=== PATIENT | female | born 2000 | race African-American/Black ===

== ENCOUNTER 2021-08-11 19:33 | Emergency (ER) | payer BC, SELFPAY ==
[2021-08-11 20:15] VITALS: BP 131/68; PULSE 67; RESP 20; TEMP 36.8; O2SAT 0; BMI 35.4
[2021-08-11] MEDS: Ondansetron ODT 4 MG TAB.RAPDIS SUBLINGUAL (20:22)
--- NOTE | 2021-08-11 21:14 | ED_ITS ---
HPI - Abdominal Pain General Chief Complaint: Abdominal Pain Stated Complaint: Abdominal pain Time Seen by Provider: 08/11/21 21:01 Source: patient Mode of arrival: ambulatory Limitations: no limitations History of Present Illness HPI narrative: 21-year-old female who presents emergency department for evaluation of abdominal pain, nausea and vomiting. The patient states that her menstrual period started on and came 2 days orally. She states that she has had normal month for flow is use the normal number of tampons and pads. She states however she has severe cramping which is unusual for her. She points to her suprapubic area when asked to localize the area of pain. She states the cramping is intermittent and worse at night. She states the pain is 10/10 at its worst. The patient has had nausea and vomiting. She states she vomited at least 4 times today and there was no blood in the emesis. The pain does not radiate to her back. The patient states that she has an IUD and is sexually ac tive and she states she had sex 3 days prior. She denied fever, chills, chest pain, shortness of breath, frequency, urgency or dysuria. She has had no diarrhea and she feels constipated. Related Data Previous Rx's Medication Instructions Recorded ondansetron 4 mg disintegrating 4 mg PO Q6-8H PRN #14 tab 08/11/21 tablet Allergies Allergy/AdvReac Type Severity Reaction Status Date / Time No Known Allergies Allergy Verified 08/11/21 20:14 Review of Systems Review of Systems Yes all other systems are reviewed and are negative Physical Exam Vital Signs: Vital Signs: Last Vital Signs Temp 98.2 F 08/11/21 20:15 Pulse 67 08/11/21 20:15 Resp 20 08/11/21 20:15 BP 131/68 08/11/21 20:15 Pulse Ox 0 L 08/11/21 20:15 Body Mass Index 35.4 Const: Other: Very pleasant and cooperative female patient, she answers all questions appropriately, she does not appear to be in distress at this time. HENMT: Head: Yes normal to inspection, Yes normocephalic and Yes atraumatic Ears: external ears normal General nose exam: Normal external nose present Face and sinus: Yes normal facial exam Mouth: Normal oral and palatal mucosa present Throat: Yes posterior oropharynx normal Eyes: General: appearance normal, both eyes and all related structures Pupils: Equal, round and reactive pupils present Neck: Neck: Yes normal visual inspection, Yes no lymphadenopathy, Yes trachea midline and Yes supple Chest: Chest palpation & inspection: normal inspection of the chest and normal palpation of entire chest wall Resp: Effort & Inspection: normal respiratory effort and able to speak in complete sentences Auscultation: clear to auscultation bilaterally Cardio: Rate: regular rate Rhythm: regular rhythm Heart sounds: S1 normal heart sound present, S2 normal heart sound present and no murmurs GI: Inspection: Yes normal to inspection Palpation (GI): Soft to palpation, Tenderness to palpation present (GI) suprapubicly (Moderate) and no guarding Auscultation: normal bowel sounds : General: Yes no CVA tenderness Back/Spine/Pelvis: Back: no CVA tenderness Skin: General skin exam: no rashes or lesions noted Neuro: Cranial nerves: Yes CN's II-XII intact bilaterally and Yes Equal, round and reactive pupils present Cognition (Neuro): normal cognition Motor exam (neuro): 5/5 motor strength present throughout Extrem: General: Yes normal to inspection Psych: Appearance: grossly normal Speech and movement: Normal speech and movement present Affect: normal affect Attitude: cooperative Thought process: Normal thought process present Thought content: Normal thought content present Course Course Course Narrative: 21-year-old female who presents emergency department for evaluation menstrual bleeding and cramps which started on , 4 days prior to evaluation. Patient has had associated nausea and vomiting. Vital signs were normal. Physical examination did reveal moderate suprapubic tenderness otherwise was unremarkable. Patient's presentation is consistent with menstrual cramps. The patient was given Zofran 4 mg sublingually and Toradol 60 mg IM. I will obtain a urinalysis and urine test on the patient. 2226: The patient is feeling significantly better after the above treatment. Patient's urine test was negative. My impression is that the patient's pain is secondary to menstrual cramping and I did discuss this with her. The patient was advised to take ibuprofen Tylenol for pain. She was also given a prescription for Zofran 4 mg ODT every 6-8 hours as needed for nausea and vomiting. The patient was discharged home with printed and verbal instructions. MDM - Abdominal Pain Lab Data Labs: Lab Results 08/11/21 08/11/21 Range/Units 21:21 21:22 Urine Color YELLOW Urine Appearance HAZY Urine pH 7.0 (5.0-8.0) Ur Specific [place] 1.025 (1.005-1.025) Urine Protein NEG (NEG-TRACE) MG/DL Urine Glucose (UA) NEG (NEG) MG/DL Urine Ketones 40 (NEG) MG/DL Urine Blood 2+ H (NEG) Urine Nitrite NEG (NEG) Ur Leukocyte Esterase NEG (NEG) Urine RBC 1-4 (0) /HPF Urine WBC 0 (0-4) /HPF Ur Squamous Epith Cells TRACE /LPF Urine Bacteria 1+ /LPF Urine Mucus 2+ /LPF Urine Test NEGATIVE (NEGATIVE) Discharge Plan Discharge Clinical Impression: Crampy pain associated with menses, Nausea Patient Disposition: Home, Self-Care Instructions: Dysmenorrhea (ED) Additional Instructions: At this time, I believe that the pain that your feeling is secondary to menstrual cramps. Take ibuprofen 200 mg pills, 3 pills every 6 hours as needed for pain. Take Tylenol (acetaminophen) 500 mg pills, 2 pills every 4 to 6 hours as needed for pain. Take Zofran ODT 4 mg pills, 1 pill dissolved in your mouth every 8 hours as needed for nausea and vomiting. Follow-up with your doctor in 2 days. Please return to the emergency department if your symptoms get worse or if you develop any symptoms that are concerning to you. Prescriptions: New ondansetron 4 mg tablet,disintegrating 4 mg PO Q6-8H PRN (Reason: nausea and vomiting) Qty: 14 RF: 0 PMFSH Past Medical History [facility] Narrative: Past medical history: None. Past surgical history: None. Social history: She denies tobacco, alcohol and drug use. Medical History (Updated 08/11/21 @ 22:29 by Rodrigo Mcbride MD) No known health problems Social History Social History Advance Directives: No Advance Directives Information Provided: No
[2021-08-11 21:31] LABS: UPreg QC Valid YES; Urine Pregnancy NEGATIVE (NEGATIVE)
[2021-08-11 21:32] LABS: Appearance Urine HAZY; Color Urine YELLOW; Glucose Urine UA NEG (NEG); Leukocyte Esterase Urine NEG (NEG); Nitrite Urine NEG (NEG); Specific Gravity - Urine 1.025 (1.005-1.025); UACC Culture Trigger NO; Urine Blood 2+ (NEG); Urine Ketones 40 MG/DL (NEG); Urine Protein NEG (NEG-TRACE)
[2021-08-11] MEDS: Ketorolac Tromethamine 60 MG/2 ML VIAL IM (21:32)
[2021-08-11 21:42] LABS: Bacteria Urine 1+ /LPF; Mucus Urine 2+ /LPF; Squamous Epithelial Cell Urine TRACE /LPF
[2021-08-11 21:43] LABS: WBC Urine 0 /HPF (0-4)
== END 2021-08-11 23:11 | disposition home or self-care (01) ==
PROVIDERS: Emergency Provider Emergency Medicine Emergency Medical Services
DX: R25.2 Cramp and spasm (principal); N92.6 Irregular menstruation, unspecified; R11.0 Nausea; Z79.899 Other long term (current) drug therapy
CPT/HCPCS: 81001; 81025; 96372; 99283; 99284; J1885